=== PATIENT | female | born 1990 | race African-American/Black ===

== ENCOUNTER 2021-06-16 18:09 | Emergency (ER) | payer MEDICAID ==
[~2021-06-16] VITALS: Ht 165.1 cm; Wt 82.0 kg
[2021-06-16] MEDS ORDERED: nyquill (18:24)
[2021-06-16] MEDS ORDERED: dayquill (18:24)
[2021-06-16] MEDS ORDERED: BENZ-16 MT (23:28)
[2021-06-16] MEDS ORDERED: BENZONATATE 100MG CAPSULE PO ONE (23:30)
[2021-06-16 23:58] VITALS: BP 125/81
== END 2021-06-17 00:02 | disposition home or self-care (01) ==
LOC: ER 18:09
DX: J06.9 Acute upper respiratory infection, unspecified (principal); J40 Bronchitis, not specified as acute or chronic; Z20.822 Contact with and (suspected) exposure to COVID-19
CPT/HCPCS: 71046; 99284; C9803; U0003; U0005